=== PATIENT | female | born 1945 | race Caucasian/White ===

== ENCOUNTER → 2021-01-21 | Outpatient (CLI) | payer OTHER, MEDICARE ==
[~2021-01-21] MED LIST: ASCO100018 PO; ASPI-1026 PO; ASPI-496 PO; ATOR40TA78 PO; BERBERINE PO; CHOL200024 PO; ESTR1.5T4 PO; LEVO137T3 PO; MAGNESIUM PO; METF10002 PO; METF500T17 PO; METO25TA35 PO; METO25TA91 PO; OXYC-380 PO; PEPPERMINT OIL PO; [UNRECOGNIZED DRUG - OTHER] PO; [UNRECOGNIZED DRUG - OTHER] PO
== END | disposition home or self-care (01) ==
LOC: CFH 10:07
PROVIDERS: ATTEND Internal Medicine Cardiovascular Disease
DX: I51.7 Cardiomegaly (principal)
CPT/HCPCS: 93306